=== PATIENT | female | born 1985 | race Caucasian/White ===

== ENCOUNTER 2018-12-09 18:29 | Emergency (ER) | payer BC ==
[~2018-12-09] VITALS: Ht 167.6 cm; Wt 91.6 kg
[2018-12-09 18:57] VITALS: Ht 167.6 cm; Wt 91.6 kg
[2018-12-09 21:26] VITALS: BP 134/88; PULSE 114; RESP 18
--- NOTE | 2018-12-10 02:37 | ERD ---
ER Documentation Chief Complaint Chief Complaint just found out she is , had iud, sent by pmd for eval. no vb/pain HPI History of Present Illness: 32-year-old female who reports a past medical history of chronic back pain coming in today due to complaint of confirmation. Patient reports she believes her last menstrual period was approximately 11/01/2018 but is unsure due to having an IUD and periods being irregular. Patient reports that she was going to receive cortisone injections today and they did a routine urine and it was positive. Patient found a [facility] to take her for a same-day appointment in which her copper IUD was removed that had been in place for 3.5 years due to a second urine test confirmation. Patient denies vaginal bleeding or abdominal pain. At home pharmacological/nonpharmacological treatment for symptoms: Denies Denies social concerns; Denies recent foreign travel ROS All systems reviewed and are negative except as per history of present illness. Allergies Allergies: Coded Allergies: No Known Allergy (Unverified , 12/09/18) PMhx/Soc Medical and Surgical Hx: pt denies Medical Hx History of Surgery: Yes (L BREAST CYST REMOVAL ) Hx Alcohol Use: No Hx Substance Use: No Hx Tobacco Use: No Smoking Status: Former smoker FmHx Family History: diabetes Physical Exam Vitals Vital Signs Date Temp Pulse Resp B/P (MAP) Pulse Ox O2 O2 Flow FiO2 Time Delivery Rate 12/09/18 98.1 114 18 134/88 98 21:26 (103) 12/09/18 99.4 115 20 140/98 99 18:57 (112) Physical Exam Const: No acute distress, afebrile Head: Atraumatic Eyes: Normal Conjunctiva ENT: Normal External Ears, Nose and Mouth. Neck: Full range of motion. No meningismus. Resp: Clear to auscultation bilaterally Cardio: Regular rate and rhythm, no murmurs Abd: Soft, non tender, non distended. Bowel sounds present. Obese. No guarding, no masses, no rigidity Skin: No petechiae or rashes Back: No midline or flank tenderness Ext: No cyanosis, or edema Neur: Awake and alert x3, speaking in clear sentences, no focal deficits or facial asymmetry Psych: Normal Mood and Affect Result Diagram: 12/09/181957 Results 24 hrs Laboratory Tests Test 12/09/18 19:54 12/09/18 19:58 POC Beta HCG, Qualitative POSITIVE White Blood Count 11.9 10^3/ul Red Blood Count 5.02 10^6/ul Hemoglobin 13.6 g/dl Hematocrit 42.8 % Mean Corpuscular Volume 85.3 fl Mean Corpuscular Hemoglobin 27.1 pg Mean Corpuscular Hemoglobin Concent 31.8 g/dl Red Cell Distribution Width 12.8 % Platelet Count 307 10^3/UL Mean Platelet Volume 10.5 fl Immature Granulocytes % 0.900 % Neutrophils % 63.4 % Lymphocytes % 27.4 % Monocytes % 7.0 % Eosinophils % 0.8 % Basophils % 0.5 % Nucleated Red Blood Cells % 0.0 /100WBC Immature Granulocytes # 0.110 10^3/ul Neutrophils # 7.5 10^3/ul Lymphocytes # 3.3 10^3/ul Monocytes # 0.8 10^3/ul Eosinophils # 0.1 10^3/ul Basophils # 0.1 10^3/ul Nucleated Red Blood Cells # 0.0 10^3/ul Urine Color YELLOW Urine Clarity CLEAR Urine pH 6.0 Urine Specific [place] 1.009 Urine Ketones TRACE mg/dL Urine Nitrite NEGATIVE mg/dL Urine Bilirubin NEGATIVE mg/dL Urine Urobilinogen NEGATIVE mg/dL Urine Leukocyte Esterase NEGATIVE Charan/ul Urine Microscopic RBC 1 /HPF Urine Microscopic WBC 1 /HPF Urine Squamous Epithelial Cells FEW /HPF Urine Bacteria FEW /HPF Urine Hemoglobin 1+ mg/dL Urine Glucose NEGATIVE mg/dL Urine Total Protein NEGATIVE mg/dl Beta HCG, Quantitative 806.3 mIU/ml Procedures/MDM On December 02 none ED COURSE: ED course includes a thorough examination and history. The patient was stable throughout ED course. I kept the patient and/or family informed of laboratory and diagnostic imaging results throughout the ED course. LABS: CBC: no e/o of systemic infection or severe anemia Beta quantitative is 806 Urinalysis positive for trace ketones, few bacteria, 1+ hemoglobin Rh/type is A+, no RhoGam indicated DIAGNOSTIC IMAGING: Read by radiologist. OB ultrasound results show: IMPRESSION: 1. No visible intrauterine or ectopic . of unknown location. Recommend close follow-up with serial Beta HCG measurements and repeat pelvic sonogram in 7 days to exclude ectopic . 2. Thickened endometrium measuring 18 mm. RPTAT:HAJM Physician Radhika Date Time Electronically viewed and signed by Physician Radhika on 12/09/2018 21:01 PROCEDURES: None. MEDICAL DECISION MAKING: Low suspicion for life-threatening medical emergency. I have a lower clinical concern for ruptured ectopic , molar , subchorionic hematoma, spontaneous , incomplete , c omplete , missed , placental abruption, placental previa, vasa previa, uterine rupture, anembyronic . Unable to confirm if a ectopic is present. Otherwise healthy patient presenting with constellation of symptoms likely representing of unknown location as characterized by history, physical exam findings, lab findings, imaging findings. Patient reassessment @ 2113: Labs and imaging results discussed with patient and her spouse. They verbalized understanding of repeat blood test and possible ultrasound in the next 2 to 3 days to help further rule out ectopic . Strict return precautions if patient experiences vaginal bleeding or severe abdominal pain. Education given for ectopic and discharge instructions. Patient hemodynamically stable. No respiratory distress, otherwise relatively well appearing and nontoxic. Disposition given. Patient educated on diagnoses, prescriptions, follow-up care, return precautions. Str ict return precautions given for worsening condition; questions answered discharge. Patient verbalizes understanding of discharge instructions. Informed to return to emergency department if unable to get in with [facility] Friday. DISPOSITION: DISCHARGE At this time, patient is stable for discharge and outpatient management. I have instructed the patient to follow-up with his/her primary care physician in 1-2 days. I have discussed with the patient the possibility of needing to see a specialist for further workup and imaging studies if symptoms persist. I have instructed the patient to promptly return to the ER for any new or worsening symptoms including increased pain, fever, nausea, vomiting, weakness or LOC. The patient and/or family expressed understanding of and agreement with this plan. All questions were answered. Home care instructions were provided. DISCLAIMER: Inadvertent spelling and grammatical errors are likely due to EHR/dictation software use and do not reflect on the overall quality of patient care. Also, please note that the electronic time recorded on this note does not necessarily reflect the actual time of the patient encounter. Departure Diagnosis: Primary Impression: , location unknown Condition: Stable Patient Instructions: Ectopic Referrals: [facility] YOU HAVE RECEIVED A MEDICAL SCREENING EXAM AND THE RESULTS INDICATE THAT YOU DO NOT HAVE A CONDITION THAT REQUIRES URGENT TREATMENT IN THE EMERGENCY DEPARTMENT. FURTHER EVALUATION AND TREATMENT OF YOUR CONDITION CAN WAIT UNTIL YOU ARE SEEN IN YOUR DOCTORS OFFICE WITHIN THE NEXT 1-2 DAYS. IT IS YOUR RESPONSIBILITY TO MAKE AN APPOINTMENT FOR FOLOW-UP CARE. IF YOU HAVE A PRIMARY DOCTOR --you should call your primary doctor and schedule an appointment IF YOU DO NOT HAVE A PRIMARY DOCTOR YOU CAN CALL OUR PHYSICIAN REFERRAL HOTLINE AT IF YOU CAN NOT AFFORD TO SEE A PHYSICIAN YOU CAN CHOSE FROM THE FOLLOWING [facility] [address] [facility] [address] [place] [facility] [address] [facility] [address] [facility] [address] [facility]. [facility] [address] [facility]. [facility] YOU HAVE RECEIVED A MEDICAL SCREENING EXAM AND THE RESULTS INDICATE THAT YOU DO NOT HAVE A CONDITION THAT REQUIRES URGENT TREATMENT IN THE EMERGENCY DEPARTMENT. FURTHER EVALUATION AND TREATMENT OF YOUR CONDITION CAN WAIT UNTIL YOU ARE SEEN IN YOUR DOCTORS OFFICE WITHIN THE NEXT 1-2 DAYS. IT IS YOUR RESPONSIBILITY TO MAKE AN APPOINTMENT FOR FOLOW-UP CARE. IF YOU HAVE A PRIMARY DOCTOR --you should call your primary doctor and schedule and appointment IF YOU DO NOT HAVE A PRIMARY DOCTOR YOU CAN CALL OUR PHYSICIAN REFERRAL HOTLINE AT . IF YOU CAN NOT AFFORD TO SEE A PHYSICIAN YOU CAN CHOSE FROM THE FOLLOWING [facility] INSTITUTIONS[facility] [address] [place] [address] [facility] [address] [place] [address] [facility] [address] [place] [address] [facility] [place] [address] [facility] [address] [facility] [place] [address] OFFICE FAX , [place] [address] [place] [address] [address] DUNN, [place] [address] [place] [address] DR RAE, [facility] [address] [facility], [address] [address] DR LOO, [facility] [address] [facility], [place] [address] [facility] [address] [place] [address] [address] [facility] [id number] [address] BURKETT, JOSIE [address] [place] [address] [address] SUE, [place] [address] [facility]. [address], [place] [address] DR DONNELLY, [facility] [address] [place], [place] [id number] Additional Instructions: Thank you very much for allowing us to participate in your care. Your health and safety is our top priority at [facility]. It is important to read all discharge instructions and education provided in your discharge packet. *Education has been provided for ectopic pregnancies. If you develop any symptoms, return to emergency department immediately. Call your [facility] TOMORROW for an appointment during the next 2-3 days and bring all the information. You will need a repeat beta quantitative blood test in the next 2 to 3 days and a possible ultrasound. If the symptoms get worse and your provider is unavailable, return to the Emergency Department immediately. RADHA NEAL NP Dec 10, 2018 02:37
== END 2018-12-09 21:27 | disposition home or self-care (01) ==
LOC: FTE 18:29
DX: Z32.01 Encounter for pregnancy test, result positive (principal); Z87.891 Personal history of nicotine dependence
CPT/HCPCS: 36415; 76801; 76817; 81001; 81025; 84702; 85025; 86900; 86901

== ENCOUNTER → 2018-12-11 | Outpatient (CLI) | payer BC | END | disposition home or self-care (01) | LOC: LAB 12:58 | PROVIDERS: ATTEND Obstetrics & Gynecology | DX: O20.0 Threatened abortion (principal); Z3A.00 Weeks of gestation of pregnancy not specified | CPT/HCPCS: 84702 ==

== ENCOUNTER → 2018-12-14 | Outpatient (CLI) | payer BC | END | disposition home or self-care (01) | LOC: LAB 10:51 | PROVIDERS: ATTEND Obstetrics & Gynecology | DX: O20.0 Threatened abortion (principal); Z3A.00 Weeks of gestation of pregnancy not specified | CPT/HCPCS: 84702 ==

== ENCOUNTER → 2019-01-13 | Outpatient (CLI) | payer BC | END | disposition home or self-care (01) | LOC: LAB 11:02 | PROVIDERS: ATTEND Internal Medicine | DX: R30.0 Dysuria (principal) | CPT/HCPCS: 80053; 81001; 82652; 84443; 85025; 87086 ==

== ENCOUNTER → 2019-01-28 | Outpatient (CLI) | payer BC | END | disposition home or self-care (01) | LOC: LAB 10:54 | PROVIDERS: ATTEND Obstetrics & Gynecology | DX: O35.9XX0 Maternal care for (suspected) fetal abnormality and damage, unspecified, not applicable or unspecified (principal); Z3A.00 Weeks of gestation of pregnancy not specified | CPT/HCPCS: 81001; 84443; 85025; 86592; 86703; 86762; 86803; 86850; 86900; 86901; 87340 ==